=== PATIENT | male | born 1955 | race Caucasian/White ===

== ENCOUNTER 2025-04-11 09:25 | Inpatient (IN) ==
--- NOTE | 2025-04-11 09:42 | Emergency Department Note ---
Impression & Plan Generalized weakness, Near syncope, Elevated procalcitonin ED Provider Note HISTORY OF PRESENT ILLNESS: Patient is a 69-year-old male presenting with weakness and near syncope. reports the patient has had "flulike symptoms" for the last 3 days. Reports the patient has broken out in sweats and had a headache and an episode of diarrhea today. On arrival to the ER patient reports his headache has improved. No measured fevers but he has broken out in hot sweats and had some chills over the last 3 days. Patient denies any abdominal pain or nausea or vomiting. No chest pain or shortness of breath. He has a history of a cardiac stent and takes a baby aspirin daily. Patient reports that today he was at his coffee pot pouring himself a cup of coffee when he leaned over and reports that he became very weak and she had to help him to the ground. She reports that he fell forward but did not strike his head and then she was able to help him to the ground. Patient reports he suddenly felt very weak and lightheaded and that is why he went to the ground. No focal weakness, numbness or tingling in extremities. Patient has not taken any antipyretics today. Patient denies any rashes or known tick exposures. Denies any recent travel. Denies any known sick contact exposures. [place] ROS: as above PHYSICAL EXAM: Constitutional: Patient appears in no acute distress. HENT: Head: Normocephalic and atraumatic. Eyes: EOMI, PERRL Mouth/Throat: Mucous membranes moist. Neck: Trachea midline. Neck supple. Cardiovascular: RRR, No murmurs, rubs or gallops. Intact distal pulses. Pulmonary/Chest: No respiratory distress. Breath sounds clear and equal bilaterally. No wheezes or rales. Abdominal: Abdomen soft, no tenderness, rebound or guarding. Musculoskeletal: No edema, tenderness or deformity noted. Skin: Warm and dry. No rash, erythema, pallor or cyanosis Psychiatric: Appropriate mood and affect for situation. Neurological: Alert and keenly responsive. CN II-XII grossly intact, moving all extremities equally and fully. MDM: - Vitals signs stable. - History obtained via patient. History as above. - Chronic conditions affecting care: CAD (s/p PCI) - Differential diagnoses include, but are not limited to: Tickborne illness; pneumonia; UTI; viral syndrome; electrolyte abnormality; ACS; dysrhythmia - Order placed for continuous cardiac monitoring. At this time, monitor showed rate of 63 bpm with normal sinus rhythm, per my interpretation. - External medical records reviewed. - EKG image interpreted by myself showed normal sinus rhythm. Rate 87 bpm. QT 334. No acute ischemic changes. - Laboratory workup interpreted by myself showed normal WBC; normal PT/INR; slight hyponatremia (Na 132); normal lactate; normal troponin; elevated procalcitonin (0.65); negative Lyme/Babesia/anaplasmosis - CXR image reviewed by myself is negative for pneumonia, per my interpretation. - Viral respiratory panel negative - UA negative for infection - CT head wo contrast negative for acute pathology - Blood cultures obtained - Patient given 1L NS and 1g IV tylenol. - While in the ER, patient had cyclic episodes of breaking out into a sweat and soaking through his bed linens. This happened about 3 times. - Given empiric 2g IV rocephin. - Discussed results with patient and his at bedside. Family has some hesitancy about bringing the patient home, given his near syncopal episode earlier today. Will admit to hospital service. - Discussion was had with case manager specialist about patient's case and need for admission - Hospitalist consulted for admission - Patient [facility] for further evaluation and management. ASSESSMENT AND PLAN: Diagnosis: Near syncope; generalized weakness; elevated procalcitonin Plan: Admit Past Med/Surg History Problem List (Updated 04/11/25 @ 16:31 by Maggie Graves MD) Elevated procalcitonin (Acute) Near syncope (Acute) Generalized weakness (Acute) Acute myocardial infarction (Acute) Pain of left lower leg (Acute) Social History Smoking Status: Never smoker Preferred Language: Irish Feels Safe at Home: Yes Allergies Allergies Allergy/AdvReac Type Severity Reaction Status Date / Time No Known Allergies Allergy Unverified 11/29/13 17:40 Home Meds Home Medications Medication Instructions Recorded Confirmed Aspir-81 81 mg PO DAILY ##0 10/19/15 04/11/25 metoprolol succinate 25 mg 25 mg PO UD 04/11/25 04/11/25 tablet,extended release 24 hr rosuvastatin 20 mg tablet 20 mg PO DAILY 04/11/25 04/11/25 Results & Data (ED) Vital Signs Vital Signs - 24 hr 04/11/25 09:31 04/11/25 09:31 04/11/25 09:31 Temperature 37.1 C Temperature Source Oral Pulse Rate 90 90 Pulse Rate [Apical] Respiratory Rate 21 21 Blood Pressure 126/81 Blood Pressure [Right Arm] Blood Pressure Mean 96 Blood Pressure Mean [Right Arm] Pulse Oximetry 94 94 94 Oxygen Delivery Method Room Air Room Air Room Air Sepsis Recent Fever Within 48 Hours Yes Sepsis New/Unexplained Change in Mental Status N/A Sepsis Action Taken by Nursing No Action Required 04/11/25 09:37 04/11/25 09:48 04/11/25 09:48 Temperature Temperature Source Pulse Rate 86 90 Pulse Rate [Apical] Respiratory Rate 21 Blood Pressure Blood Pressure [Right Arm] Blood Pressure Mean Blood Pressure Mean [Right Arm] Pulse Oximetry 94 94 Oxygen Delivery Method Room Air Room Air Sepsis Recent Fever Within 48 Hours Sepsis New/Unexplained Change in Mental Status Sepsis Action Taken by Nursing 04/11/25 10:05 04/11/25 12:50 04/11/25 14:08 Temperature Temperature Source Pulse Rate Pulse Rate [Apical] 86 65 71 Respiratory Rate 14 12 16 Blood Pressure Blood Pressure [Right Arm] 110/79 133/89 97/56 L Blood Pressure Mean Blood Pressure Mean [Right Arm] 89 103 69 Pulse Oximetry 96 96 95 Oxygen Delivery Method Room Air Room Air Room Air Sepsis Recent Fever Within 48 Hours Sepsis New/Unexplained Change in Mental Status Sepsis Action Taken by Nursing 04/11/25 14:15 04/11/25 16:00 Temperature Temperature Source Pulse Rate 64 Pulse Rate [Apical] 63 Respiratory Rate 18 Blood Pressure Blood Pressure [Right Arm] 113/67 Blood Pressure Mean Blood Pressure Mean [Right Arm] 82 Pulse Oximetry 97 Oxygen Delivery Method Room Air Sepsis Recent Fever Within 48 Hours Sepsis New/Unexplained Change in Mental Status Sepsis Action Taken by Nursing Laboratory Data 04/11/25 09:45 04/11/25 09:45 Lab Results 04/11/25 04/11/25 Range/Units 09:45 12:48 WBC 6.84 (4.8-10.8) K/ul RBC 5.92 (4.70-6.10) M/uL Hgb 17.8 (14.0-18.0) g/dl Hct 51.9 (42.0-52.0) % MCV 87.7 (80.0-100.0) fL MCH 30.1 (25.0-34.0) pg MCHC 34.3 (32.0-36.0) g/dL RDW Std Deviation 42.8 (36.4-46.3) fL RDW Coeff of Farzaneh 13.3 (11.5-14.5) % Plt Count 148 (130-400) K/uL MPV 11.1 (9.4-12.4) fL Immature Gran % (Auto) 0.7 % Neut % (Auto) 76.2 % Lymph % (Auto) 11.8 % Leslie % (Auto) 10.8 % Eos % (Auto) 0.1 % Baso % (Auto) 0.4 % Neut # (Auto) 5.20 (1.40-6.50) K/uL Lymph # (Auto) 0.81 L (1.20-3.40) K/uL Leslie # (Auto) 0.74 H (0.11-0.59) K/uL Eos # (Auto) 0.01 (0.00-0.50) K/uL Baso # (Auto) 0.03 (0.00-0.20) K/uL Immature Gran # (Auto) 0.05 (0.01-0.20) K/uL PT 11.4 (9.0-12.0) Seconds INR 1.1 (0.9-1.1) APTT 27 (21-31) Seconds PTT Ratio 1.0 Sodium 132 L (136-145) mmol/L Potassium 4.2 (3.5-5.1) mmol/L Chloride 97 L (98-107) mmol/L Carbon Dioxide 25 (21-32) mmol/L Anion Gap 10 (3-11) BUN 22 (6-23) mg/dl Creatinine 1.31 (0.6-1.4) mg/dl Est Cr Clr Drug Dosing 49.1 ml/min eGFR 58.56 BUN/Creatinine Ratio 16.8 (10-20) Glucose 111 H (70-99(Fasting)) mg/dl Lactate 1.5 (0.4-2.0) mmol/L Calcium 9.3 (8.6-10.3) mg/dl Magnesium 1.9 (1.7-2.4) mg/dl Total Bilirubin 1.2 H (0.2-1.0) mg/dl AST 37 (13-39) U/L ALT 31 (7-52) U/L Alkaline Phosphatase 68 (34-104) U/L Troponin I High Sens 12.5 (0-20) pg/ml Total Protein 7.5 (6.0-8.3) gm/dl Albumin 4.2 (3.4-5.0) gm/dl Globulin 3.3 (2.5-4.0) gm/dl Albumin/Globulin Ratio 1.3 (0.9-2) Procalcitonin 0.65 H (0-0.5) ng/ml Urine Color Yellow Urine Appearance Clear (Clear) Urine pH 6.0 (4.5-7.5) Ur Specific Maxwell 1.015 (1.000-1.030) Urine Protein 1+ H (Negative) Urine Glucose (UA) Negative (Negative) Urine Ketones 1+ H (Negative) Urine Blood Negative (Negative) Urine Nitrite Negative (Negative) Urine Bilirubin Negative (Negative) Urine Urobilinogen Negative (Negative) Ur Leukocyte Esterase Negative (Negative) Urine WBC (Auto) 0-5 (0-5) /hpf Urine RBC (Auto) 3-5 H (0-2) /hpf U Hyaline Cast (Auto) 6-10 H (0-2) /lpf U Epithel Cells (Auto) 3-5 H (0-2) /hpf Urine Bacteria (Auto) None Seen (None Seen) Hyaline Casts Present A (None Presnt) /lpf Granular Casts Present A (None Prsent) /lpf Urine Mucus Present A (None Prsent) Urine Comment Adenovirus (PCR) Not Detected (NotDetected) Anaplasma Smear See Comment Babesia Smear See Comment B. pertussis DNA (PCR) Not Detected (NotDetected) B.parapertussis DNA PCR Not Detected (NotDetected) Lyme Disease Screen Negative (Negative) C. pneumoniae DNA (PCR) Not Detected (NotDetected) Coronavirus OC43 (PCR) Not Detected (NotDetected) Coronavirus HKU1 (PCR) Not Detected (NotDetected) Coronavirus 229E (PCR) Not Detected (NotDetected) SARS-CoV-2 (PCR) Not Detected (NotDetected) Coronavirus NL63 (PCR) Not Detected (NotDetected) Human Metapneumovir PCR Not Detected (NotDetected) Influenza Type A (PCR) Not Detected (NotDetected) Influenza Type B (PCR) Not Detected (NotDetected) M. pneumoniae (PCR) Not Detected (NotDetected) Parainfluenza 1 (PCR) Not Detected (NotDetected) Parainfluenza 2 (PCR) Not Detected (NotDetected) Parainfluenza 3 (PCR) Not Detected (NotDetected) Parainfluenza 4 (PCR) Not Detected (NotDetected) RSV (PCR) Not Detected (NotDetected) Entero/Rhino (PCR) Not Detected (NotDetected) Administered Medications Discontinued Medications Acetaminophen (Ofirmev) 1,000 mg in 100 mls @ 400 mls/hr IV NOW STA Stop: 04/11/25 09:54 Last Infusion: 04/11/25 10:22 Dose: Infused Documented By: Admin: 04/11/25 10:04 Dose: 400 mls/hr Documented By: NETTIE Sodium Chloride (Nss) 1,000 mls @ 999 mls/hr IV .Q1H1M ONE Stop: 04/11/25 12:16 Last Infusion: 04/11/25 12:50 Dose: Infused Documented By: Admin: 04/11/25 11:19 Dose: 999 mls/hr Documented By: NETTIE Ceftriaxone Sodium (Rocephin) 2,000 mg in 50 mls @ 100 mls/hr IV NOW STA Stop: 04/11/25 14:48 Last Infusion: 04/11/25 15:15 Dose: Infused Documented By: NRClark Admin: 04/11/25 14:37 Dose: 100 mls/hr Documented By: NETTIE Imaging Data Radiologist's Impression: Chest X-Ray 04/11/25 09:38 XR chest 1V portable CLINICAL HISTORY: Sepsis COMPARISON STUDY: 11/29/2013 FINDINGS: Heart size and pulmonary vasculature are normal. No effusion, consolidation, or pneumothorax. There is an interval nodular density overlying the left upper lung medially. IMPRESSION: 1. No acute findings. 2. Artifact from overlapping structures versus interval left upper lung pulmonary nodule. Suggest follow-up chest CT. ACT 112: Positive. There are findings on this exam that require communication between the performing entity and the patient following Patient Test Result Information Act ([place] Act 112) guidelines. Electronically signed by: Seymour Oro M.D. 04/11/2025 10:[address] 04/11/25 09:40 CT head/brain wo con CLINICAL HISTORY: weakness; near syncope. TECHNIQUE: Multiple axial CT images of the head were obtained without contrast. A dose lowering technique was utilized adhering to the principles of ALARA. CT DOSE: 703.85 mGy.cm COMPARISON: None FINDINGS: No intracranial hemorrhage seen. No mass effect, midline shift, or hydrocephalus. No skull fracture seen. Visualized paranasal sinuses are clear. IMPRESSION: No acute findings. ACT 112: Negative or not required by law. The above report was generated using voice recognition software. It may contain grammatical, syntax or spelling errors. Electronically signed by: Seymour Oro M.D. 04/11/2025 10:06 AM Discharge Plan Visit Data Chief Complaint: Weakness Stated Complaint: WEAKNESS, DIZZINESS, NEAR SYNCOPE ED Provider: Maggie Graves Discharge Problem: Generalized weakness, Near syncope, Elevated procalcitonin Condition: Fair Forms Stand Alone Forms: [facility] [employer] Prescriptions Prescriptions: No Action Aspir-81 81 MG tablet 81 mg PO DAILY Qty: 0 metoprolol succinate 25 mg tablet extended release 24 hr 25 mg PO UD Rx Instructions: 1 and 1/2 tabs daily rosuvastatin 20 mg tablet 20 mg PO DAILY Referrals Referrals: Phan Lennon MD [Primary Care Provider] -
[2025-04-11] MEDS: ACETAMINOPHEN 1,000 MG/100 ML VIAL IV STA ×2 (10:04→22:03)
--- NOTE | 2025-04-11 10:07 | CT Scan Report ---
CT head/brain wo con CLINICAL HISTORY: weakness; near syncope. TECHNIQUE: Multiple axial CT images of the head were obtained without contrast. A dose lowering tech nique was utilized adhering to the principles of ALARA. CT DOSE: 703.85 mGy.cm COMPARISON: None FINDINGS: No intracranial hemorrhage seen. No mass effect, midline shift, or hydrocephalus. No skull fracture seen. Visualized paranasal sinuses are clear. IMPRESSION: No acute findings. ACT 112: Negative or not required by law. The above report was generated using voice recognition software. It may contain grammatical, syntax o r spelling errors. Electronically signed by: Seymour Oro M.D. 04/11/2025 10:06 AM
[2025-04-11 10:13] LABS: Basophils # (auto) 0.03 K/uL (0.00-0.20); Basophils % (auto) 0.4 %; Eosinophils # (auto) 0.01 K/uL (0.00-0.50); Eosinophils % (auto) 0.1 %; Hematocrit (blood only) 51.9 % (42.0-52.0); Hemoglobin 17.8 g/dl (14.0-18.0); Immature Granulocytes # (auto) 0.05 K/uL (0.01-0.20); Immature Granulocytes % (auto) 0.7 %; Lymphocytes # (auto) 0.81 K/uL (1.20-3.40); Lymphocytes % (auto) 11.8 %; Mean Corpuscular Hemoglobin 30.1 pg (25.0-34.0); Mean Corpuscular Hgb Conc 34.3 g/dL (32.0-36.0); Mean Corpuscular Volume 87.7 fL (80.0-100.0); Mean Platelet Volume 11.1 fL (9.4-12.4); Monocytes # (auto) 0.74 K/uL (0.11-0.59); Monocytes % (auto) 10.8 %; Neutrophils % (auto) 76.2 %; Platelet Count 148 K/uL (130-400); RDW Coefficient of Variation 13.3 % (11.5-14.5); RDW Standard Deviation 42.8 fL (36.4-46.3); Red Blood Count 5.92 M/uL (4.70-6.10); White Blood Count 6.84 K/ul (4.8-10.8)
--- NOTE | 2025-04-11 10:14 | XRay Report ---
XR chest 1V portable CLINICAL HISTORY: Sepsis COMPARISON STUDY: 11/29/2013 FINDINGS: Heart size and pulmonary vasculature are normal. No effusion, consolidation, or pneumothora x. There is an interval nodular density overlying the left upper lung medially. IMPRESSION: 1. No acute findings. 2. Artifact from overlapping structures versus interval left upper lung pulmonary nodule. Suggest fol low-up chest CT. ACT 112: Positive. There are findings on this exam that require communication between the performing entity and the patient following Patient Test Result Information Act ([place] Act 112) guidelines. Electronically signed by: Seymour Oro M.D. 04/11/2025 10:12 AM
[2025-04-11 10:29] LABS: Albumin Globulin Ratio 1.3 (0.9-2); Albumin Level 4.2 gm/dl (3.4-5.0); BUN Creatinine Ratio 16.8 (10-20); Bilirubin,Total 1.2 mg/dl (0.2-1.0); Calcium 9.3 mg/dl (8.6-10.3); Creatinine Clr Calc Pharmacy 49.1 ml/min; Globulin 3.3 gm/dl (2.5-4.0); Magnesium 1.9 mg/dl (1.7-2.4); Potassium 4.2 mmol/L (3.5-5.1); Total Protein 7.5 gm/dl (6.0-8.3)
[2025-04-11 10:34] LABS: Procalcitonin 0.65 ng/ml (0-0.5); Troponin I High Sensitivity 12.5 pg/ml (0-20)
[2025-04-11 10:46] LABS: INR 1.1 (0.9-1.1); Partial Thromboplastin Time 27 Seconds (21-31); Prothrombin Time 11.4 Seconds (9.0-12.0)
[2025-04-11 11:00] LABS: Lyme Screen Rflx Confirmation Negative (Negative)
[2025-04-11 11:01] LABS: Adenovirus PCR Not Detected (NotDetected); Bordetella parapertussis PCR Not Detected (NotDetected); Bordetella pertussis PCR Not Detected (NotDetected); Chlamydia pneumoniae PCR Not Detected (NotDetected); Coronavirus 229E PCR Not Detected (NotDetected); Coronavirus CoV-2 (COVID19)PCR Not Detected (NotDetected); Coronavirus HKU1 PCR Not Detected (NotDetected); Coronavirus NL63 PCR Not Detected (NotDetected); Coronavirus OC43PCR Not Detected (NotDetected); Human Metapneumovirus PCR Not Detected (NotDetected); Influenza A PCR Not Detected (NotDetected); Influenza B PCR Not Detected (NotDetected); Mycoplasma pneumoniae PCR Not Detected (NotDetected); Parainfluenza Virus 1 PCR Not Detected (NotDetected); Parainfluenza Virus 2 PCR Not Detected (NotDetected); Parainfluenza Virus 3 PCR Not Detected (NotDetected); Parainfluenza Virus 4 PCR Not Detected (NotDetected); Respiratory Syncytial VirusPCR Not Detected (NotDetected); Rhinovirus/Enterovirus PCR Not Detected (NotDetected)
[2025-04-11] MEDS: SODIUM CHLORIDE 0.9% 1,000 ML IV ONE (11:19)
[2025-04-11 13:27] LABS: Appearance Urine Clear (Clear); Bacteria Urine Automated None Seen (None Seen); Bilirubin Urine Negative (Negative); Blood Urine Negative (Negative); Color Urine Yellow; Glucose Urine UA Negative (Negative); Granular Casts Urine Present /lpf (None Prsent); Hyaline Casts Urine Present /lpf (None Presnt); Ketones Urine 1+ (Negative); Leukocyte Esterase Urine Negative (Negative); Mucus Urine Present (None Prsent); Nitrite Urine Negative (Negative); Protein Urine 1+ (Negative); Specific Gravity Urine 1.015 (1.000-1.030); Urobilinogen Urine Negative (Negative); WBC Urine Automated 0-5 /hpf (0-5)
--- NOTE | 2025-04-11 13:36 | Electrocardiogram Report ---
Test Reason : Blood Pressure : */* mmHG Vent. Rate : 87 BPM Atrial Rate : 87 BPM P-R Int : 158 ms QRS Dur : 72 ms QT Int : 334 ms P-R-T Axes : 41 57 3 degrees QTcB Int : 401 ms Sinus rhythm Premature atrial complexes Otherwise normal ECG Confirmed by Raghu Salmeron ([id number]) on 04/11/2025 1:35:36 PM Referred By: Confirmed By: Raghu Salmeron
[2025-04-11] MEDS: cefTRIAXone SODIUM 2,000 MG/50 ML BAG IV STA (14:37)
--- NOTE | 2025-04-11 16:00 | History & Physical Report ---
Date of Service April 11, 2025 History of Present Illness Primary Care Provider: Phan Lennon MD History of inferolateral IN in 2014, urgent cardiac catheterization, BRANDY to proximal RCA. Mild nonobstructive CAD noted elsewhere. He has atrial tachycardia and frequent PACs. Currently controlled with metoprolol succinate 37.5mg daily. Hypertension well-controlled. Was previously on losartan but discontinued due to hypotension. LDL has been well-controlled and consistently below 70 on rosuvastatin 20mg daily. He follows with cardiology. Allergies Allergy/AdvReac Type Severity Reaction Status Date / Time No Known Allergies Allergy Unverified 11/29/13 17:40 Home Medications Medication Instructions Recorded Confirmed Type Aspir-81 81 mg PO DAILY ##0 10/19/15 04/11/25 History metoprolol succinate 25 mg 25 mg PO UD 04/11/25 04/11/25 History tablet,extended release 24 hr rosuvastatin 20 mg tablet 20 mg PO DAILY 04/11/25 04/11/25 History Past Med/Surg History Problem List (Updated 06/06/18 @ 21:47 by [employer]) Acute myocardial infarction (Acute) Pain of left lower leg (Acute) Social History Smoking Status: Never smoker Preferred Language: Greek Feels Safe at Home: Yes Results & Data Results & Data Vital Signs (Past 12 Hours) Vital Signs Temp Pulse Pulse Resp BP BP Pulse Ox 04/11/25 14:15 64 04/11/25 14:08 71 16 97/56 L 95 04/11/25 12:50 65 12 133/89 96 04/11/25 10:05 86 14 110/79 96 04/11/25 09:48 90 21 94 04/11/25 09:48 94 04/11/25 09:37 86 04/11/25 09:31 90 21 94 04/11/25 09:31 94 04/11/25 09:31 37.1 C 90 21 126/81 94 O2 Del Method 04/11/25 14:15 04/11/25 14:08 Room Air 04/11/25 12:50 Room Air 04/11/25 10:05 Room Air 04/11/25 09:48 Room Air 04/11/25 09:48 Room Air 04/11/25 09:37 04/11/25 09:31 Room Air 04/11/25 09:31 Room Air 04/11/25 09:31 Room Air
[2025-04-11 16:35] LABS: Phosphorus 3.3 mg/dl (2.5-4.9)
[2025-04-11 16:50] LABS: Thyroid Stimulating Hormone 1.327 uIu/ml (0.300-4.500)
--- NOTE | 2025-04-11 16:50 | History & Physical Report ---
Date of Service April 11, 2025 Assessment & Plan (1) Near syncope: Plan: Patient is a 69 year old male with past medical history of inferolateral DC in 2014, BRANDY to proximal RCA, Mild nonobstructive CAD, atrial tachycardia with rate control on metoprolol succinate, HTN, hyperlipidemia on statin, who presents with syncope. Reports having a headache 3 days ago, progressed to weakness, lightheadedness, diaphoretic spells, chills and then today unstable on feet upon getting out of bed. Had urinary urgency this morning and 1 episode of foul- smelling diarrhea. Then had syncopal event when standing at the coffee pot later this morning. witnessed the event and lowered him to the ground. No head injuries reported. Denies chest pain, swelling, palpitations, abdominal pain, nausea, rashes,lesions, falls, cognitive changes. Syncope in the setting of elevated procalcitonin: * Admit to Med Surg Tele * NSS at 100 ml/hr * MRI w w/o contrast- ordered * Continue empiric Ceftriaxone * Anaplasma/Babesia PCR testing pending- will start Doxy * Diarrhea reported x 1 day- Will obtain Stool studies # Paroxysmal Atrial Tachycardia/HTN/CAD * Tele monitoring * As per Cardiology note from 01/20/25 home BP readings low, ranging from 108 to 115 systolic, Losartan previously discontinued secondary to hypotension. * Continue home metoprolol- will obtain orthostatic BP Q8H * Continue home statin * Continue home aspirin # Lung Nodule * Chest Xray showing interval nodular density overlying the left upper lung medially * Chest CT w/o contrast ordered #VY * Nonadherent to CPAP at home * Reports chronic fatigue w/o sleep disruptions overnight. DVT Ppx: Teds Code status: Full PCP: Dr. Phan Lennon Dispo: Admit to Med Surg Tele for further management Patient seen in collaboration with Dr. Gregorio. Please see addendum.I spent a total of 70 minutes coordinating, documenting and providing care for this patient excluding time spent in the performance of separately billed services or time spent by another provider/QHP. (2) Elevated procalcitonin: (3) Paroxysmal atrial tachycardia: (4) Hypertension: (5) CAD (coronary artery disease): (6) Lung nodule seen on imaging study: (7) VY (obstructive sleep apnea): History of Present Illness Primary Care Provider: Phan Lennon MD Patient is a 69 year old male with past medical history of inferolateral DC in 2013, BRANDY to proximal RCA, Mild nonobstructive CAD, atrial tachycardia with rate control on metoprolol succinate, HTN, hyperlipidemia on statin, who presents with syncope. Reports having a headache 3 days ago, progressed to weakness, lightheadedness, diaphoretic spells, chills and then today unstable on feet upon getting out of bed. Had urinary urgency this morning and 1 episode of foul- smelling diarrhea. Then had syncopal event when standing at the coffee pot later this morning. witnessed the event and lowered him to the ground. No head injuries reported. Denies chest pain, swelling, palpitations, abdominal pain, nausea, rashes,lesions, falls, cognitive changes. In the emergency department, he had periodic diaphoretic spells without fever. Hemodynamically stable, with a soft BP that responded well to 1L NSS. No evidence of sepsis. WBC normal. Elevated Procal at 0.65. Urine negative. Rocephin given in ED empirically. No evidence of Anaplasmosis and Babesia infection on serology; PCR testing pending on both. Chest Xray showing questionable lung nodule to NBA. Patient reports a history of nighttime cough that he feels may be from seasonal allergies; however, his states the cough sounds different than normal cough. As per external chart review, the patient has a history of inferolateral DC in 2013 with drug-eluting stent to proximal RCA and mild nonobstructive CAD. On aspirin at home. He has atrial tachycardia with frequent PACs, and on metoprolol succinate 37.5mg daily. History of hypertension, previously on losartan, but weaned off due to hypotension at home. Cardiology notes systolic BP's low to 108. He has untreated VY as he is nonadherent to CPAP machine despite encouragement from PCP and Cardiology. Family history of Afib and stroke. History obtained primarily from the patient. His was at the bedside and assisted with history of present illness. External chart review via [employer]. Allergies Allergy/AdvReac Type Severity Reaction Status Date / Time No Known Allergies Allergy Unverified 11/29/13 17:40 Home Medications Medication Instructions Recorded Confirmed Type Aspir-81 81 mg PO DAILY ##0 10/19/15 04/11/25 History metoprolol succinate 25 mg 25 mg PO UD 04/11/25 04/11/25 History tablet,extended release 24 hr rosuvastatin 20 mg tablet 20 mg PO DAILY 04/11/25 04/11/25 History Past Med/Surg History Problem List (Updated 04/11/25 @ 17:47 by VESTA Page) Lung nodule seen on imaging study Elevated procalcitonin (Acute) Near syncope (Acute) Generalized weakness (Acute) Acute myocardial infarction (Acute) Pain of left lower leg (Acute) Medical History (Updated 04/11/25 @ 17:47 by VESTA Page) CAD (coronary artery disease) Hypertension Paroxysmal atrial tachycardia VY (obstructive sleep apnea) Social History Smoking Status: Never smoker Preferred Language: Cambodian Feels Safe at Home: Yes Review of Systems Review of Systems: All systems reviewed & are unremarkable except as noted in HPI & below Physical Exam Physical Exam: VITALS: Reviewed. WEIGHT/BMI reviewed. GEN: Healthy appearing, well-developed, NAD. PSYCH: Good Judgment. AOx4. Normal memory, mood, and affect. HEENT -Head: NC/AT; Lymph nodes nontender and nonpalpable -Eyes: PERRL, EOMI. No discharge or redn ess; -Ears: External ears are normal. -Nose: Normal nares. -Mouth and throat: MMM. Normal gums, muc vy, palate,. Good dentition. NECK: Supple, with no masses. CV: Regularly, irregular rhythm, S1, S2 no murmurs. Carotids w/o bruit, No swelling. Pulses strong throughout LUNGS: CTAB, no w/r/c. ABD: Soft, nontender, no rebound tenderness, Hyperactive BS, no masses or organomegaly. : N/A SKIN: Warm, well perfused. No skin rashes or abnormal lesions. MSK: No deformities EXT: No clubbing, cyanosis, or edema. NEURO: Ambulating with no limitations. Normal muscle strength and tone. No focal deficits. Results & Data Results & Data Vital Signs (Past 12 Hours) Vital Signs Temp Pulse Pulse Resp BP BP Pulse Ox 04/11/25 16:00 63 18 113/67 97 04/11/25 14:15 64 04/11/25 14:08 71 16 97/56 L 95 04/11/25 12:50 65 12 133/89 96 04/11/25 10:05 86 14 110/79 96 04/11/25 09:48 90 21 94 04/11/25 09:48 94 04/11/25 09:37 86 04/11/25 09:31 90 21 94 04/11/25 09:31 94 04/11/25 09:31 37.1 C 90 21 126/81 94 O2 Del Method 04/11/25 16:00 Room Air 04/11/25 14:15 04/11/25 14:08 Room Air 04/11/25 12:50 Room Air 04/11/25 10:05 Room Air 04/11/25 09:48 Room Air 04/11/25 09:48 Room Air 04/11/25 09:37 04/11/25 09:31 Room Air 04/11/25 09:31 Room Air 04/11/25 09:31 Room Air Laboratory Results Short CBC 04/11/25 Range/Units 09:45 WBC 6.84 (4.8-10.8) K/ul Hgb 17.8 (14.0-18.0) g/dl Hct 51.9 (42.0-52.0) % Plt Count 148 (130-400) K/uL BMP 04/11/25 09:45 Sodium 132 L Potassium 4.2 Chloride 97 L Carbon Dioxide 25 BUN 22 Creatinine 1.31 Glucose 111 H Calcium 9.3 Liver Function 04/11/25 Range/Units 09:45 Total Bilirubin 1.2 H (0.2-1.0) mg/dl AST 37 (13-39) U/L ALT 31 (7-52) U/L Alkaline Phosphatase 68 (34-104) U/L Albumin 4.2 (3.4-5.0) gm/dl Urine 04/11/25 Range/Units 12:48 Urine Color Yellow Urine Appearance Clear (Clear) Urine pH 6.0 (4.5-7.5) Ur Specific [place] 1.015 (1.000-1.030) Urine Protein 1+ H (Negative) Urine Glucose (UA) Negative (Negative) Diagnostic Findings Chest X-Ray 04/11/25 09:38 XR chest 1V portable CLINICAL HISTORY: Sepsis COMPARISON STUDY: 11/29/2013 FINDINGS: Heart size and pulmonary vasculature are normal. No effusion, consolidation, or pneumothorax. There is an interval nodular density overlying the left upper lung medially. IMPRESSION: 1. No acute findings. 2. Artifact from overlapping structures versus interval left upper lung pulmonary nodule. Suggest follow-up chest CT. ACT 112: Positive. There are findings on this exam that require communication between the performing entity and the patient following Patient Test Result Information Act ([place] Act 112) guidelines. Electronically signed by: Seymour Oro M.D. 04/11/2025 10:[address] 04/11/25 09:40 CT head/brain wo con CLINICAL HISTORY: weakness; near syncope. TECHNIQUE: Multiple axial CT images of the head were obtained without contrast. A dose lowering technique was utilized adhering to the principles of ALARA. CT DOSE: 703.85 mGy.cm COMPARISON: None FINDINGS: No intracranial hemorrhage seen. No mass effect, midline shift, or hydrocephalus. No skull fracture seen. Visualized paranasal sinuses are clear. IMPRESSION: No acute findings. ACT 112: Negative or not required by law. The above report was generated using voice recognition software. It may contain grammatical, syntax or spelling errors. Electronically signed by: Seymour Oro M.D. 04/11/2025 10:06 AM Supervising Physician Co-Signing Physician Notes Patient seen and examined independently. Discussed with above provider Patient presents to the hospital with 3 days of generalized weakness, fatigue and diaphoresis. [facility]. No visual changes, neck pain, sore throat, abdomen pain or joint pain. Suspect possible anaplasmosis/tickborne illness. Plan to start empiric ceftriaxone and doxycycline, CT chest, MRI brain with and without contrast. Follow-up on blood cultures. I have reviewed the advanced practitioner's documentation, and I agree with, and take responsibility for the plan of care I spent a total of 30 minutes coordinating, documenting, and providing care for this patient excluding time spent in the performance of separately billed services. All of the aforementioned completed while collaborating with the assigned advanced practitioner for a full treatment plan
[2025-04-11] MEDS: GADOBUTROL 30ML VIAL IV ONE (18:23)
[2025-04-11] MEDS ORDERED: ONDANSETRON INJ 2 MG/ML 2 ML VIAL IV PRN (19:08)
[2025-04-11] MEDS ORDERED: ALUMINUM/MAGNESIUM SUSP 30 ML UDC PO PRN (19:08)
--- NOTE | 2025-04-11 19:34 | CT Scan Report ---
EXAM: CT chest diagnostic wo con CLINICAL HISTORY: syncope TECHNIQUE: Contiguous axial CT images of the chest were acquired without administration of intravenous contrast. Coronal and sagittal reconstructions were obtained. One of the following dose reduction techniques were utilized for this exam: Automated exposure control, adjustment of the mA and/or kV according to patient size, use of iterative reconstruction. COMPARISON: none FINDINGS: Lungs: The lung parenchyma is clear with no evidence of consolidation, collapse Bilateral upper lung lobes mild paraseptal emphysematous changes Right lobe superior segment peripheral pleural based nodule measuring less than 3 mm likely of benign etiology No pulmonary nodules or masses are identified. No evidence of interstitial lung disease or emphysema. No pleural effusion or pleural thickening. Mediastinum: The mediastinum is normal in size and contour. No mediastinal mass or abnormal lymphadenopathy. The heart size is within normal limits. Hilar Structures: The hilar structures appear normal without enlargement or abnormality. coronary artery calcifications Trachea and Main Bronchi: The trachea and main bronchi are patent without evidence of obstruction or abnormality. Chest Wall: The chest wall is unremarkable with no evidence of soft tissue or bony abnormalities. Upper Abdomen: Hepatic steatosis Bones: Degenerative changes of the scanned spine IMPRESSION: 1. No evidence of consolidation, collapse, or pleural effusion 2. No acute abnormalities 3. Hepatic steatosis 4. Right lobe superior segment peripheral pleural based nodule measuring less than 3 mm likly of benign etiology Electronically signed by Jered Macias 04-11-2025 7:33 PM
[2025-04-11] MEDS: DOXYCYCLINE HYCLATE 100 MG in DEXTROSE 5% MINI-B 100 ML IV STA (19:55)
[2025-04-11] MEDS: SODIUM CHLORIDE 0.9% 1,000 ML IV SCH (19:56)
[2025-04-11] MEDS: DOXYCYCLINE HYCLATE 100 MG CAP PO SCH (21:04)
--- NOTE | 2025-04-11 21:18 | Magnetic Resonance Report ---
EXAM: MR brain wo/w con CLINICAL HISTORY: syncope. TECHNIQUE: MRI of the brain was performed with and without intravenous contrast administration (7.7 cc Gadavist). Sequences obtained include pre-contrast and post-contrast T1-weighted, T2-weighted, FLAIR (Fluid-Attenuated Inversion Recovery), DWI (Diffusion-Weighted Imaging), and ADC (Apparent Diffusion Coefficient) sequences. COMPARISON: No previous studies are available for comparison. FINDINGS: Brain Parenchyma: A few punctate hyperintense foci were appreciated in the right frontal lobe on T2 and FLAIR sequences. No area of diffusion restriction is identified. No evidence of acute infarction or hemorrhage. Lopez-white matter differentiation is preserved. Post-Contrast Findings: No abnormal enhancement of the brain parenchyma or meninges. Ventricles and Sulci: The ventricular system is prominent, likely due to senile changes. No hydrocephalus. Sulci and cisternal spaces are age-appropriate. Brainstem and Cerebellum: Normal appearance of the brainstem and cerebellum without focal lesions or abnormal enhancement. Vessels: Intracranial vessels appear normal without evidence of vascular malformations or aneurysms. Skull and Calvarium: No evidence of skull vault lesions or abnormal marrow signal within the calvarium. IMPRESSION: 1. No area of acute infarction or hemorrhage is noted. 2. Early changes of microvascular angiopathy are noted. 3. Age-appropriate senile atrophy. Electronically signed by Jered Macias 04-11-2025 9:18 PM
--- NOTE | 2025-04-11 21:20 | Communication Note ---
Date of Service: April 11, 2025
[2025-04-11] MEDS ORDERED: METOPROLOL SUCC 25MG EXT REL TAB PO SCH (21:30)
[2025-04-11] MEDS: METOPROLOL TARTRATE 1 MG/ML VIAL IV STA (21:57)
[2025-04-11] MEDS: MAGNESIUM SULFATE / D5W 1 GM/100 ML BAG IV ONE (22:02)
[2025-04-11] MEDS: metroNIDAZOLE 500 MG/100 ML BAG IV STA (22:03)
[2025-04-11] MEDS: ACETAMINOPHEN SUSP 160 MG/5 ML BTL PO STA (22:34)
[2025-04-12] MEDS: ACETAMINOPHEN 325 MG TAB PO PRN (05:53)
[2025-04-12 06:22] LABS: Hematocrit (blood only) 46.7 % (42.0-52.0); Hemoglobin 15.8 g/dl (14.0-18.0); Mean Corpuscular Hemoglobin 29.6 pg (25.0-34.0); Mean Corpuscular Hgb Conc 33.8 g/dL (32.0-36.0); Mean Corpuscular Volume 87.5 fL (80.0-100.0); Platelet Count 108 K/uL (130-400); RDW Coefficient of Variation 13.4 % (11.5-14.5); RDW Standard Deviation 42.9 fL (36.4-46.3); Red Blood Count 5.34 M/uL (4.70-6.10); White Blood Count 4.74 K/ul (4.8-10.8)
[2025-04-12 07:04] LABS: BUN Creatinine Ratio 21.6 (10-20); Calcium 8.2 mg/dl (8.6-10.3); Creatinine Clr Calc Pharmacy 66.3 ml/min; Magnesium 1.9 mg/dl (1.7-2.4); Phosphorus 2.9 mg/dl (2.5-4.9); Potassium 3.9 mmol/L (3.5-5.1)
[2025-04-12 07:23] LABS: Estimated Average Glucose 128 mg/dl; Hemoglobin A1C 6.1 % (4.5-5.6)
[2025-04-12] MEDS ORDERED: ALBUT/IPRATROP 3MG/0.5MG NEB 3 ML VIAL NEB PRN (08:11)
[2025-04-12] MEDS ORDERED: METOPROLOL SUCC 25MG EXT REL TAB PO SCH (09:00)
[2025-04-12] MEDS: ASPIRIN 81 MG ECTAB PO SCH (09:23)
[2025-04-12] MEDS: METOPROLOL SUCC 50MG EXT REL TAB PO SCH (09:23)
[2025-04-12] MEDS: ROSUVASTATIN CALCIUM 20 MG TAB PO SCH (09:23)
[2025-04-12] MEDS: OPTIRAY 320 100ml IV ONE (10:15)
--- NOTE | 2025-04-12 10:49 | CT Scan Report ---
CT abdomen pelvis wo/w con CLINICAL HISTORY: febrile unknown etiology COMPARISON STUDY: None FINDINGS: ABDOMEN: There is mild fatty liver. There is minimal splenomegaly measuring 13 cm. Otherwise the live r, gallbladder, spleen, pancreas, and adrenal glands have an unremarkable amount IV contrast appearan ce. There are a few small cysts at both kidneys. There are a few tiny renal calculi bilaterally. Ther e is no hydronephrosis or ureteral calculi. There are scattered atherosclerotic calcifications. No ab dominal aortic aneurysm. Pelvis: Prostate is enlarged. Urinary bladder is mildly distended. There is mild sigmoid diverticulos is. No acute diverticulitis. No bowel inflammation or obstruction. No free fluid, free air, or absces s. Osseous structures: There is severe lumbar spine degenerative disc disease. There are moderate degene rative changes at the hips. IMPRESSION: 1. No acute findings seen. 2. Minimal splenomegaly, and the normal variation, can also be seen with infection or mononucleosis. ACT 112: Negative or not required by law. Electronically signed by: Seymour Oro M.D. 04/12/2025 10:47 AM
[2025-04-12 10:58] VITALS: BP 126/73; RESP 16; TEMP 97.7; O2SAT 96
[2025-04-12 13:05] LABS: EBV Nuclear Antigen IgG Ab Negative; EBV Nuclear Antigen IgG Quant < 3.0 U/mL (< 18.0)
[2025-04-12 13:06] LABS: EBV IgG Quant > 750.0 U/mL (< 18.0)
[2025-04-12 13:07] LABS: EBV IgM Quant < 10.0 U/mL (< 36.0)
[2025-04-12] MEDS: cefTRIAXone SODIUM 2,000 MG/50 ML BAG IV SCH (13:24)
--- NOTE | 2025-04-12 14:42 | Discharge Summary ---
Discharge Summary Date of Service April 12, 2025 Principal Dx & Hospital Course #1 = Principal Diagnosis (1) Near syncope: Patient is a 69 year old male with past medical history of inferolateral MD in 2014, BRANDY to proximal RCA, Mild nonobstructive CAD, atrial tachycardia with rate control on metoprolol succinate, HTN, hyperlipidemia on statin, who presents with syncope. Reports having a headache 3 days ago, progressed to weakness, lightheadedness, diaphoretic spells, chills and then today unstable on feet upon getting out of bed. Had urinary urgency this morning and 1 episode of foul- smelling diarrhea. Then had syncopal event when standing at the coffee pot later this morning. witnessed the event and lowered him to the ground. No head injuries reported. Denies chest pain, swelling, palpitations, abdominal pain, nausea, rashes,lesions, falls, cognitive changes. Syncope in the setting of elevated procalcitonin: * Admit to Med Surg Tele * NSS at 100 ml/hr * MRI w w/o contrast- ordered * Continue empiric Ceftriaxone * Anaplasma/Babesia PCR testing pending- will start Doxy * Diarrhea reported x 1 day- Will obtain Stool studies # Paroxysmal Atrial Tachycardia/HTN/CAD * Tele monitoring * As per Cardiology note from 01/20/25 home BP readings low, ranging from 108 to 115 systolic, Losartan previously discontinued secondary to hypotension. * Continue home metoprolol- will obtain orthostatic BP Q8H * Continue home statin * Continue home aspirin # Lung Nodule * Chest Xray showing interval nodular density overlying the left upper lung medially * Chest CT w/o contrast ordered #VY * Nonadherent to CPAP at home * Reports chronic fatigue w/o sleep disruptions overnight. DVT Ppx: Teds Code status: Full PCP: Dr. Phan Lennon Dispo: Admit to Med Surg Tele for further management Patient seen in collaboration with Dr. Gregorio. Please see addendum.I spent a total of 70 minutes coordinating, documenting and providing care for this patient excluding time spent in the performance of separately billed services or time spent by another provider/QHP. (2) Elevated procalcitonin: (3) Paroxysmal atrial tachycardia: (4) Hypertension: (5) CAD (coronary artery disease): (6) Lung nodule seen on imaging study: (7) VY (obstructive sleep apnea): Notes For Next Care Provider Patient is a 69 year old male with past medical history of inferolateral MD in 2013, BRANDY to proximal RCA, Mild nonobstructive CAD, atrial tachycardia with rate control on metoprolol succinate, HTN, hyperlipidemia on statin, who presents with syncope. Reports having a headache 3 days ago, progressed to weakness, lightheadedness, diaphoretic spells, chills and then today unstable on feet upon getting out of bed. On medicine, started on abx for coverage of infection of unknown origin. Extensive imaging unremarkable for acute cause of illness. EBV IgG positive but otherwise workup unremarkable. Fever curve downtrended, fluids given. One bowel movement with diarrhea. On 04/12/2025 patient medically stable for discharge home. Medication Changes From Visit -see below Discharge Exam Gen: A&O 3 NAD HEENT: NCAT, EOMI, not icteric. External ears normal. No rhinorrhea. Moist mucous membranes. Neck: Supple, full range of motion, no observable masses, No meningeal sign. Lungs: No Respiratory distress. CV: RRR, no edema. Abdomen: Soft, nondistended, No rebound tenderness. MSK: No joint swelling, no redness. Skin: No rashes, petechiae, lesions. Normal color per patient. Neuro: Normal Gait, Grossly intact. Psych: Appropriate for situation. Updated Medication List Medication Instructions Recorded Confirmed Type Aspir-81 81 mg PO DAILY ##0 10/19/15 04/11/25 History metoprolol succinate 25 mg 25 mg PO UD 04/11/25 04/11/25 History tablet,extended release 24 hr rosuvastatin 20 mg tablet 20 mg PO DAILY 04/11/25 04/11/25 History amoxicillin 500 mg-potassium 1 tab PO BID 5 days #10 tabs 04/12/25 Rx clavulanate 125 mg tablet (Augmentin) ondansetron 4 mg disintegrating 4 mg PO Q8H PRN nausea and 04/12/25 Rx tablet vomiting 4 days #14 tabs Hospital Stay Data Consultations 04/11/25 16:11 ED Decision to Admit Stat Diagnostic Imagining Performed 04/11/25 09:40 CT head/brain wo con Stat 04/11/25 17:14 CT chest diagnostic wo con Routine MRI Brain [MR brain wo/w con] Urgent 04/12/25 09:37 CT abdomen pelvis wo/w con Urgent Pending Results Patient Have Any Pending Studies at Discharge: No Discharge Instructions Given to Patient (Per Discharging Provider) 1. Please follow up with PCP. 2. Please take medications as prescribed. 3. Please stay hydrated. Total Time Total Time Spent Total Time Spent (In Minutes): I spent a total of 35 minutes in direct patient care, including [id number] time with the patient and/or family, reviewing medical records, ordering and reviewing diagnostic tests, and coordinating care with other healthcare providers. This time includes: history taking, physical examination, medical decision making, counseling, ECG interpretation, imaging interpretation, lab interpretation, orders, and education, excluding time spent in the performance of separately billed services.
[2025-04-12 15:53] VITALS: PULSE 91
--- NOTE | 2025-04-14 15:14 | Electrocardiogram Report ---
Test Reason : Blood Pressure : */* mmHG Vent. Rate : 109 BPM Atrial Rate : 109 BPM P-R Int : 150 ms QRS Dur : 76 ms QT Int : 282 ms P-R-T Axes : 43 64 -16 degrees QTcB Int : 379 ms Sinus tachycardia with occasional Premature ventricular complexes Possible Inferior infarct Poor R-wave progression Abnormal ECG When compared with ECG of 11-Apr-2025 09:31, Premature ventricular complexes are now Present Confirmed by Iván Brown ([id number]) on 04/14/2025 3:13:50 PM Referred By: REFERRED SELF Confirmed By: Iván Brown
== END 2025-04-12 15:54 | disposition home or self-care (01) | DRG 312 ==
LOC: ED 09:25 → SUATTDRO 16:40 → 2W 16:40